=== PATIENT | female | born 1955 | race Caucasian/White ===

== ENCOUNTER 2017-11-05 14:00 | Emergency (ER) | payer MEDICAID ==
[~2017-11-05] VITALS: Ht 152.4 cm; Wt 50.0 kg
[2017-11-05] MEDS ORDERED: ACETAMINOPHEN 325MG TABLET PO ONE (17:15)
[2017-11-05 20:13] VITALS: BP 129/74
== END 2017-11-05 20:15 | disposition home or self-care (01) ==
LOC: ER 14:30
DX: S30.1XXA Contusion of abdominal wall, initial encounter (principal); S50.11XA Contusion of right forearm, initial encounter; M54.2 Cervicalgia; I10 Essential (primary) hypertension; Z88.0 Allergy status to penicillin; V49.88XA Car occupant (driver) (passenger) injured in other specified transport accidents, initial encounter; Y93.89 Activity, other specified; Y92.89 Other specified places as the place of occurrence of the external cause; Y99.8 Other external cause status
CPT/HCPCS: 72125; 74176; 99284